=== PATIENT | female | born 1960 | race Caucasian/White ===

== ENCOUNTER → 2017-02-18 | Outpatient (CLI) | payer OTHER | LOC: MC.RAD 01-23 14:40 | DX: Z12.31 Encounter for screening mammogram for malignant neoplasm of breast (principal) ==

== ENCOUNTER → 2019-01-08 | Outpatient (CLI) | payer OTHER | LOC: MC.RAD 15:03 | DX: Z12.31 Encounter for screening mammogram for malignant neoplasm of breast (principal) ==